=== PATIENT | male | born 1965 | race Caucasian/White ===

== ENCOUNTER 2023-11-21 10:27 | Day surgery (SDC) | payer OTHER ==
[~2023-11-21] VITALS: Ht 172.7 cm; Wt 79.4 kg
[2023-11-21] MEDS ORDERED: LIDOCAINE 2% 100 MG/5 ML UJET TP ONE (12:51)
[2023-11-21] MEDS ORDERED: fentaNYL citrate 0.05 MG/ML VIAL ONE (12:51)
[2023-11-21] MEDS: fentaNYL citrate 0.05 MG/ML VIAL IVP ONE (13:30)
[2023-11-21] MEDS ORDERED: FENTANYL C 0.025 MG/HR PATCH TD SCH (13:50)
== END 2023-11-21 14:42 | disposition home or self-care (01) ==
LOC: MDS 10:27 → MMU 10:30 → MDS 14:42
PROVIDERS: ATTEND Internal Medicine Gastroenterology
DX: K57.30 Diverticulosis of large intestine without perforation or abscess without bleeding (principal); K59.00 Constipation, unspecified; I10 Essential (primary) hypertension; E78.00 Pure hypercholesterolemia, unspecified; Z83.719 Family history of colon polyps, unspecified; Z88.0 Allergy status to penicillin; Z79.899 Other long term (current) drug therapy; Z98.890 Other specified postprocedural states
CPT/HCPCS: 45378; J3010